=== PATIENT | female | born 1945 | race Caucasian/White ===

== ENCOUNTER 2019-05-20 10:45 | Outpatient (CLI) | payer MEDICARE ==
[~2019-05-20] VITALS: Ht 157 cm; Wt 47.7 kg
[2019-05-22] MEDS ORDERED: DOCU-143 PO (08:35)
[2019-05-22] MEDS ORDERED: ACHD5005 PO (08:35)
== END 2019-05-20 11:52 | disposition home or self-care (01) ==
LOC: PREOP 10:45
PROVIDERS: ATTEND Surgery
DX: Z01.818 Encounter for other preprocedural examination (principal)